=== PATIENT | male | born 1935 | race Caucasian/White ===

== ENCOUNTER 2018-08-10 12:50 | Day surgery (SDC) | payer MEDICARE, OTHER ==
[~2018-08-10] VITALS: Ht 167.6 cm; Wt 101.8 kg
[2018-08-10] MEDS ORDERED: SODIUM CHLORIDE 0.9% 1,000 ML IV ONE (12:58)
[2018-08-10 13:34] LABS: GLUCOMETER DEV NAME(LOC) SDS.; GLUCOSE,POINT OF CARE 85 MG/DL (70-110)
[2018-08-10] MEDS: SODIUM CHLORIDE 0.9% 1,000 ML IV ONE (13:35)
[2018-08-10] MEDS ORDERED: FentaNYL CITRATE-PF 100 MCG/2 ML VIAL ONE (13:52)
[2018-08-10] MEDS ORDERED: MIDAZOLAM HCL 5 MG/ML VIAL ONE (13:53)
== END 2018-08-10 18:15 | disposition home or self-care (01) ==
LOC: SURGERY 12:50
PROVIDERS: ATTEND Internal Medicine Gastroenterology
DX: K62.1 Rectal polyp (principal); K57.30 Diverticulosis of large intestine without perforation or abscess without bleeding; K64.0 First degree hemorrhoids; J44.9 Chronic obstructive pulmonary disease, unspecified; I10 Essential (primary) hypertension; E78.00 Pure hypercholesterolemia, unspecified; M19.90 Unspecified osteoarthritis, unspecified site; E03.9 Hypothyroidism, unspecified; E11.9 Type 2 diabetes mellitus without complications; Z98.890 Other specified postprocedural states; Z79.899 Other long term (current) drug therapy; Z86.79 Personal history of other diseases of the circulatory system
CPT/HCPCS: 88305; 93005; 99152; J2250; J3010; J7030

== ENCOUNTER 2021-03-12 09:18 | Inpatient (IN) | payer MEDICARE, OTHER ==
[~2021-03-12] VITALS: Ht 165.1 cm; Wt 64.4 kg
[2021-03-12] MEDS ORDERED: VANCOMYCIN HCL 1 GM/D5% WATER 200 ML IV ONE (09:30)
[2021-03-12] MEDS ORDERED: IPRATROPIUM BROMIDE 0.5 MG/2.5 ML NEB SOLUTION NEB ONE (09:30)
[2021-03-12] MEDS ORDERED: SODIUM CHLORIDE 0.9% 1,000 ML IV ONE (09:30)
[2021-03-12] MEDS ORDERED: AZITHROMYCIN 500 MG/NS 250 ML IV ONE (09:30)
[2021-03-12] MEDS ORDERED: PIPERACILLIN/TAZO 3.375 GM/D5W 50 ML IV ONE (09:30)
[2021-03-12] MEDS ORDERED: ACETAMINOPHEN 1000 MG/ISO-OSM 100 ML IV ONE (09:30)
[2021-03-12] MEDS ORDERED: ALBUTEROL SULFATE 5 MG/ML 20 ML NEB SOLN [BULK] NEB ONE (09:30)
[2021-03-12] MEDS ORDERED: DEXAMETHASONE SOD PHOS 4 MG/ML VIAL IVP ONE (09:30)
[2021-03-12 09:39] LABS: COVID AG,FIA SOURCE NASOPHARYNGEAL
[2021-03-12 09:48] LABS: BASOPHILS % (AUTO) 0.2 % (0.0-2.0); EOSINOPHILS % (AUTO) 0.2 % (1.0-6.0); HEMATOCRIT 40.7 % (41-53); HEMOGLOBIN 13.1 g/dL (13.5-17.5); LYMPHOCYTES # (AUTO) 1.3 K/uL (1.0-4.8); LYMPHOCYTES % (AUTO) 13.2 % (22.0-44.0); MEAN CORPUSCULAR HEMOGLOBIN 28.3 pg (26.0-34.0); MEAN CORPUSCULAR HGB CONC 32.2 G/dL (31.0-37.0); MEAN CORPUSCULAR VOLUME 88 fL (80-100); MONOCYTES # (AUTO) 0.6 K/uL (0.1-1.0); MONOCYTES % (AUTO) 6.3 % (2.0-9.0); NEUTROPHILS # (AUTO) 7.6 K/uL (1.8-7.7); NEUTROPHILS % (AUTO) 80.1 % (40.0-70.0); PLATELET COUNT (AUTO) 139 K/uL (150-450); RED BLOOD CELL COUNT(AUTO) 4.63 MIL/uL (4.50-5.90); RED CELL DISTRIBUTION WIDTH 18.7 % (11.5-14.5)
[2021-03-12 09:52] LABS: CREATININE 1.7 mg/dL (0.60-1.30); POTASSIUM 4.1 mmol/L (3.5-5.1)
[2021-03-12 09:57] LABS: INR 1.2 (0.9-1.1); PROTHROMBIN TIME 12.6 SEC (9.4-11.6)
[2021-03-12 10:25] LABS: ALBUMIN 2.9 g/dL (3.4-5.0); BILIRUBIN,TOTAL 1.5 mg/dL (0.1-1.0); C-REACTIVE PROTEIN QUANT 19.79 mg/dL (0.00-0.30); MAGNESIUM 2.1 mg/dL (1.80-2.40); PHOSPHORUS 3.7 mg/dL (2.5-4.9); TOTAL PROTEIN, SERUM 6.8 g/dL (6.4-8.2)
[2021-03-12 10:27] LABS: BILIRUBIN,URINE NEGATIVE (NEGATIVE); GLUCOSE, URINE (UA) NEGATIVE (NEGATIVE); KETONES,URINE NEGATIVE (NEGATIVE); LEUKOCYTE ESTERASE ,URINE NEGATIVE (NEGATIVE); NITRATE,URINE NEGATIVE (NEGATIVE); OCCULT BLOOD,URINE NEGATIVE (NEGATIVE); PROTEIN,URINE SEE CONFIRM (NEGATIVE)
[2021-03-12 10:29] LABS: APPEARANCE,URINE HAZY (CLEAR)
[2021-03-12 10:39] LABS: SULFOSALICYLIC ACID,URINE 1+ (Negative)
[2021-03-12 10:40] LABS: BACTERIA,URINE None Seen /HPF (None Seen); FINE GRANULAR CASTS,URINE 0-2 /LPF (None Seen); RBC,URINE None Seen /HPF (0-2); WBC,URINE None Seen /HPF (0-5)
[2021-03-12 11:08] LABS: INFLUENZA TYPE A NEGATIVE FOR TYPE A (NEGATIVE); INFLUENZA TYPE B NEGATIVE FOR TYPE B (NEGATIVE)
[2021-03-12] MEDS ORDERED: ATOR40TA28 PO (11:19)
[2021-03-12] MEDS ORDERED: LEVO88TA4 PO (11:19)
[2021-03-12] MEDS ORDERED: MONT-35 PO (11:19)
[2021-03-12] MEDS ORDERED: ALLO100T2 PO (11:19)
[2021-03-12] MEDS ORDERED: CHOL-35 PO (11:19)
[2021-03-12] MEDS ORDERED: CALC0.2521 PO (11:19)
[2021-03-12] MEDS ORDERED: GABA-1216 PO (11:19)
[2021-03-12] MEDS ORDERED: FURO40 PO (11:19)
[2021-03-12] MEDS ORDERED: LOSA-370 PO (11:19)
[2021-03-12] MEDS ORDERED: METO25XL PO (11:19)
[2021-03-12] MEDS ORDERED: SPIR-37 PO (11:19)
[2021-03-12] MEDS ORDERED: APIX2.5T PO (11:19)
[2021-03-12] MEDS ORDERED: FOLI-130 PO (11:19)
[2021-03-12] MEDS ORDERED: BUDE10.26 IH (11:19)
[2021-03-12] MEDS ORDERED: TIOT185 IH (11:19)
[2021-03-12] MEDS ORDERED: IPRA4AER IH (11:19)
[2021-03-12] MEDS ORDERED: ONDANSETRON HCL 4 MG/2 ML VIAL IVP PRN (11:30)
[2021-03-12] MEDS ORDERED: ACETAMINOPHEN 325 MG TABLET PO PRN (11:30)
[2021-03-12] MEDS ORDERED: 0.9% SODIUM CHLORIDE 10 ML SYRINGE IVP PRN (11:30)
[2021-03-12] MEDS ORDERED: GABA-1181 PO (11:41)
[2021-03-12] MEDS ORDERED: IPRA3AMP24 NEB (11:41)
[2021-03-12] MEDS ORDERED: LEVO175T9 PO (11:41)
[2021-03-12] MEDS ORDERED: METO25 PO (11:41)
[2021-03-12] MEDS ORDERED: TIOT4MIS2 IH (11:41)
[2021-03-12] MEDS ORDERED: ALBU8HFA IH (11:41)
[2021-03-12] MEDS ORDERED: BUDE10.2 IH (11:41)
[2021-03-12 21:11] VITALS: BP 119/66
[2021-03-12] MEDS: ALBUTEROL SULFATE HFA 90 MCG/PUFF 8 GM INHALER IH SCH (21:45)
[2021-03-12] MEDS ORDERED: FUROSEMIDE 40 MG TABLET PO SCH (21:45)
[2021-03-12] MEDS ORDERED: METOPROLOL TARTRATE 25 MG TABLET PO SCH (21:45)
[2021-03-12] MEDS ORDERED: GABAPENTIN 300 MG CAPSULE PO SCH (21:45)
[2021-03-12] MEDS ORDERED: APIXABAN 2.5 MG TABLET PO SCH (21:45)
[2021-03-12 23:38] VITALS: BP 111/61
[2021-03-13] MEDS ORDERED: DEXAMETHASONE SOD PHOS 4 MG/ML VIAL IVP ONE (00:15)
[2021-03-13] MEDS ORDERED: ACETAMINOPHEN 325 MG TABLET PO PRN (00:30)
[2021-03-13] MEDS ORDERED: ZOLPIDEM TARTRATE 5 MG TABLET PO PRN (00:30)
[2021-03-13] MEDS ORDERED: BISACODYL 10 MG RECTAL RECTAL SUPPOSITORY PR PRN (00:30)
[2021-03-13] MEDS ORDERED: ONDANSETRON HCL 4 MG/2 ML VIAL IVP PRN (00:30)
[2021-03-13] MEDS ORDERED: MAGNESIUM HYDROXIDE SUSPENSION 30 ML UDCUP PO PRN (00:30)
[2021-03-13] MEDS: CefTRIAXone 1 GM/DEXTROSE 50 ML IV SCH ×2 (00:54→23:39)
[2021-03-13] MEDS: AZITHROMYCIN 500 MG/NS 250 ML IV SCH (00:55)
[2021-03-13] MEDS: ALBUTEROL SULFATE HFA 90 MCG/PUFF 8 GM INHALER IH SCH ×4 (00:56→23:36)
[2021-03-13] MEDS ORDERED: SODIUM CHLORIDE 0.9% 250 ML IV ONE (01:01)
[2021-03-13 03:33] VITALS: BP 109/62
[2021-03-13] MEDS ORDERED: MISC MED-CONVERTED FROM AMBULATORY (Levothyroxine Sodium 175 MCG) PO SCH (06:30)
[2021-03-13] MEDS: LEVOTHYROXINE SODIUM 50 MCG TABLET PO SCH ×2 (06:42→06:47)
[2021-03-13 07:45] VITALS: BP 135/73
[2021-03-13 08:13] LABS: EOSINOPHILS % (AUTO) 0 % (1.0-6.0); HEMATOCRIT 40.4 % (41-53); HEMOGLOBIN 13.2 g/dL (13.5-17.5); LYMPHOCYTES # (AUTO) 0.2 K/uL (1.0-4.8); LYMPHOCYTES % (AUTO) 2.3 % (22.0-44.0); MEAN CORPUSCULAR HEMOGLOBIN 28.6 pg (26.0-34.0); MEAN CORPUSCULAR HGB CONC 32.6 G/dL (31.0-37.0); MEAN CORPUSCULAR VOLUME 88 fL (80-100); MONOCYTES # (AUTO) 0.3 K/uL (0.1-1.0); NEUTROPHILS # (AUTO) 9.5 K/uL (1.8-7.7); PLATELET COUNT (AUTO) 161 K/uL (150-450); RED CELL DISTRIBUTION WIDTH 18.3 % (11.5-14.5)
[2021-03-13 08:19] LABS: ALBUMIN 2.8 g/dL (3.4-5.0); BILIRUBIN,TOTAL 0.8 mg/dL (0.1-1.0); CALCIUM, TOTAL 9.2 mg/dL (8.8-10.5); CREATININE 1.81 mg/dL (0.60-1.30); POTASSIUM 5.1 mmol/L (3.5-5.1); TOTAL PROTEIN, SERUM 6.9 g/dL (6.4-8.2)
[2021-03-13 08:21] LABS: NEUTROPHILS % (AUTO) 94.7 % (40.0-70.0)
[2021-03-13] MEDS ORDERED: [UNRECOGNIZED DRUG - OTHER] IH SCH (09:00)
[2021-03-13] MEDS: FOLIC ACID 1 MG TABLET PO SCH (09:00)
[2021-03-13] MEDS ORDERED: FUROSEMIDE 40 MG TABLET PO SCH (09:00)
[2021-03-13] MEDS ORDERED: SPIRONOLACTONE 25 MG TABLET PO SCH (09:00)
[2021-03-13 11:49] VITALS: BP 137/78
[2021-03-13] MEDS: DEXAMETHASONE SOD PHOS 4 MG/ML VIAL IVP SCH (12:01)
[2021-03-13] MEDS: ALLOPURINOL 100 MG TABLET PO SCH (12:02)
[2021-03-13] MEDS: CHOLECALCIFEROL (VIT D3) 1,000 UNITS [25 MCG] TABLET PO SCH (12:02)
[2021-03-13] MEDS: GABAPENTIN 300 MG CAPSULE PO SCH ×3 (12:02→21:07)
[2021-03-13] MEDS: APIXABAN 2.5 MG TABLET PO SCH ×2 (12:03→21:07)
[2021-03-13] MEDS: DOCUSATE SODIUM 100 MG CAPSULE PO SCH ×2 (12:03→21:07)
[2021-03-13] MEDS: METOPROLOL TARTRATE 25 MG TABLET PO SCH (12:03)
[2021-03-13] MEDS: PANTOPRAZOLE SODIUM 40 MG/VIAL IVP SCH (12:05)
[2021-03-13] MEDS ORDERED: REMDESIVIR 200 MG in SODIUM CHLORIDE 0.9% 250 ML IV ONE (12:15)
[2021-03-13 15:49] VITALS: BP 142/81
[2021-03-13 20:13] VITALS: BP 131/81
[2021-03-13] MEDS: ATORVASTATIN CALCIUM 40 MG TABLET PO SCH (21:07)
[2021-03-13] MEDS: LOSARTAN POTASSIUM 25 MG TABLET PO SCH (21:07)
[2021-03-13] MEDS: MONTELUKAST SODIUM 10 MG TABLET PO SCH (21:07)
[2021-03-13 23:31] VITALS: BP 137/83
[2021-03-14] MEDS: AZITHROMYCIN 500 MG/NS 250 ML IV SCH (00:16)
[2021-03-14 04:10] VITALS: BP 124/76
[2021-03-14] MEDS: LEVOTHYROXINE SODIUM 50 MCG TABLET PO SCH (07:24)
[2021-03-14] MEDS: ALBUTEROL SULFATE HFA 90 MCG/PUFF 8 GM INHALER IH SCH ×3 (07:25→20:31)
[2021-03-14 08:41] VITALS: BP 126/86
[2021-03-14] MEDS: CALCITRIOL 0.25 MCG CAPSULE PO SCH (08:56)
[2021-03-14] MEDS: APIXABAN 2.5 MG TABLET PO SCH ×2 (08:56→20:30)
[2021-03-14] MEDS: METOPROLOL TARTRATE 25 MG TABLET PO SCH (08:56)
[2021-03-14] MEDS: DOCUSATE SODIUM 100 MG CAPSULE PO SCH ×2 (08:57→20:30)
[2021-03-14] MEDS: CHOLECALCIFEROL (VIT D3) 1,000 UNITS [25 MCG] TABLET PO SCH (08:57)
[2021-03-14] MEDS: DEXAMETHASONE SOD PHOS 4 MG/ML VIAL IVP SCH (08:58)
[2021-03-14] MEDS: PANTOPRAZOLE SODIUM 40 MG/VIAL IVP SCH (08:59)
[2021-03-14] MEDS: GABAPENTIN 300 MG CAPSULE PO SCH ×3 (08:59→20:30)
[2021-03-14] MEDS: FOLIC ACID 1 MG TABLET PO SCH (09:13)
[2021-03-14] MEDS ORDERED: FUROSEMIDE 40 MG/4 ML VIAL IVP ONE (10:00)
[2021-03-14 10:08] LABS: CALCIUM, TOTAL 9.3 mg/dL (8.8-10.5); CREATININE 1.78 mg/dL (0.60-1.30)
[2021-03-14 10:16] LABS: POTASSIUM 5.2 mmol/L (3.5-5.1)
[2021-03-14 12:00] VITALS: BP 125/83
[2021-03-14] MEDS ORDERED: LEVO50 PO (13:28)
[2021-03-14] MEDS: ALLOPURINOL 100 MG TABLET PO SCH (14:49)
[2021-03-14 16:16] VITALS: BP 131/73
[2021-03-14 18:12] LABS: EOSINOPHILS % (AUTO) 0 % (1.0-6.0); HEMATOCRIT 40.9 % (41-53); HEMOGLOBIN 12.8 g/dL (13.5-17.5); LYMPHOCYTES # (AUTO) 0.2 K/uL (1.0-4.8); LYMPHOCYTES % (AUTO) 1.3 % (22.0-44.0); MEAN CORPUSCULAR HEMOGLOBIN 27.8 pg (26.0-34.0); MEAN CORPUSCULAR HGB CONC 31.3 G/dL (31.0-37.0); MEAN CORPUSCULAR VOLUME 89 fL (80-100); MONOCYTES # (AUTO) 0.9 K/uL (0.1-1.0); MONOCYTES % (AUTO) 6.3 % (2.0-9.0); NEUTROPHILS # (AUTO) 13.3 K/uL (1.8-7.7); PLATELET COUNT (AUTO) 192 K/uL (150-450); RED BLOOD CELL COUNT(AUTO) 4.62 MIL/uL (4.50-5.90); RED CELL DISTRIBUTION WIDTH 18.4 % (11.5-14.5)
[2021-03-14 18:31] LABS: NEUTROPHILS % (AUTO) 92.4 % (40.0-70.0)
[2021-03-14 18:34] LABS: ALBUMIN 2.9 g/dL (3.4-5.0); BILIRUBIN,TOTAL 0.5 mg/dL (0.1-1.0); C-REACTIVE PROTEIN QUANT 13.5 mg/dL (0.00-0.30); CALCIUM, TOTAL 9.2 mg/dL (8.8-10.5); CREATININE 1.78 mg/dL (0.60-1.30); POTASSIUM 5.4 mmol/L (3.5-5.1); TOTAL PROTEIN, SERUM 6.9 g/dL (6.4-8.2)
[2021-03-14 19:36] VITALS: BP 144/71
[2021-03-14] MEDS: LOSARTAN POTASSIUM 25 MG TABLET PO SCH (20:30)
[2021-03-14] MEDS: ATORVASTATIN CALCIUM 40 MG TABLET PO SCH (20:30)
[2021-03-14] MEDS: MONTELUKAST SODIUM 10 MG TABLET PO SCH (20:30)
[2021-03-14] MEDS: REMDESIVIR 100 MG in SODIUM CHLORIDE 0.9% 250 ML IV SCH (20:31)
[2021-03-14 23:38] VITALS: BP 126/70
[2021-03-15] MEDS: CefTRIAXone 1 GM/DEXTROSE 50 ML IV SCH (00:29)
[2021-03-15] MEDS: ALBUTEROL SULFATE HFA 90 MCG/PUFF 8 GM INHALER IH SCH ×4 (00:30→19:30)
[2021-03-15] MEDS: AZITHROMYCIN 500 MG/NS 250 ML IV SCH (01:28)
[2021-03-15 03:49] VITALS: BP 122/73
[2021-03-15] MEDS: LEVOTHYROXINE SODIUM 50 MCG TABLET PO SCH (06:07)
[2021-03-15 06:08] LABS: EOSINOPHILS % (AUTO) 0 % (1.0-6.0); HEMATOCRIT 40.3 % (41-53); HEMOGLOBIN 12.9 g/dL (13.5-17.5); LYMPHOCYTES # (AUTO) 0.2 K/uL (1.0-4.8); LYMPHOCYTES % (AUTO) 1.8 % (22.0-44.0); MEAN CORPUSCULAR HEMOGLOBIN 28.4 pg (26.0-34.0); MEAN CORPUSCULAR VOLUME 89 fL (80-100); MONOCYTES # (AUTO) 0.9 K/uL (0.1-1.0); MONOCYTES % (AUTO) 6.5 % (2.0-9.0); NEUTROPHILS # (AUTO) 12.2 K/uL (1.8-7.7); PLATELET COUNT (AUTO) 180 K/uL (150-450); RED BLOOD CELL COUNT(AUTO) 4.53 MIL/uL (4.50-5.90); RED CELL DISTRIBUTION WIDTH 18.3 % (11.5-14.5)
[2021-03-15 06:25] LABS: NEUTROPHILS % (AUTO) 91.7 % (40.0-70.0)
[2021-03-15 06:42] LABS: ALBUMIN 2.8 g/dL (3.4-5.0); BILIRUBIN,TOTAL 0.5 mg/dL (0.1-1.0); C-REACTIVE PROTEIN QUANT 14.12 mg/dL (0.00-0.30); CALCIUM, TOTAL 9.2 mg/dL (8.8-10.5); CREATININE 1.87 mg/dL (0.60-1.30); POTASSIUM 5.5 mmol/L (3.5-5.1); TOTAL PROTEIN, SERUM 6.8 g/dL (6.4-8.2)
[2021-03-15 07:54] VITALS: BP 142/67
[2021-03-15] MEDS: DEXAMETHASONE SOD PHOS 4 MG/ML VIAL IVP SCH (08:49)
[2021-03-15] MEDS: METOPROLOL TARTRATE 25 MG TABLET PO SCH (08:50)
[2021-03-15] MEDS: CHOLECALCIFEROL (VIT D3) 1,000 UNITS [25 MCG] TABLET PO SCH (08:50)
[2021-03-15] MEDS: GABAPENTIN 300 MG CAPSULE PO SCH ×4 (08:50→21:52)
[2021-03-15] MEDS: FOLIC ACID 1 MG TABLET PO SCH (08:51)
[2021-03-15] MEDS: DOCUSATE SODIUM 100 MG CAPSULE PO SCH ×3 (08:51→21:51)
[2021-03-15] MEDS: PANTOPRAZOLE SODIUM 40 MG/VIAL IVP SCH (08:55)
[2021-03-15] MEDS: APIXABAN 2.5 MG TABLET PO SCH ×2 (08:57→21:00)
[2021-03-15] MEDS: ALLOPURINOL 100 MG TABLET PO SCH (09:00)
[2021-03-15] MEDS ORDERED: TOCILIZUMAB 800 MG in SODIUM CHLORIDE 0.9% 60 ML IV ONE (11:30)
[2021-03-15 11:41] VITALS: BP 115/43
[2021-03-15 15:18] LABS: ABG BASE EXCESS -4.7 mmol/L (-2.0-3.0); ABG CARBOXYHEMOGLOBIN 0.5 % (0.0-1.5); ABG HCO3 19.4 mmol/L (22.0-26.0); ABG METHEMOGLOBIN 0.3 % (0.0-1.5); ABG OXYGEN CONTENT 15.8 mL/dL (15.0-23.0); ABG OXYHEMOGLOBIN 79.2 % (94.0-100.0); ABG PCO2 63 mmHg (35-45); ABG PH 7.189 (7.35-7.450); ABG TOTAL HEMOGLOBIN 14.2 G/dL (12.0-18.0); PO2, ARTERIAL BG 47.2 mmHg (71.0-79.0); SOURCE, BLOOD GAS ARTERIAL
[2021-03-15 15:19] LABS: ABG OXYGEN SATURATION 79.8 % (95.0-98.0); O2 DEVICE,BLOOD GAS HI FL CANNULA (ROOM AIR); SITE, BLOOD GAS LFT RADIAL
[2021-03-15 15:29] VITALS: BP 125/43
[2021-03-15] MEDS: IPRATROPIUM BROMIDE 0.5 MG/2.5 ML NEB SOLUTION NEB SCH ×3 (16:01→22:39)
[2021-03-15] MEDS: ALBUTEROL SULFATE 2.5 MG/0.5 ML NEB SOLUTION NEB SCH ×3 (16:02→22:38)
[2021-03-15 17:44] LABS: ABG METHEMOGLOBIN 0.3 % (0.0-1.5); ABG TOTAL HEMOGLOBIN 13.5 G/dL (12.0-18.0); SOURCE, BLOOD GAS ARTERIAL
[2021-03-15 17:47] LABS: ABG BASE EXCESS -4.4 mmol/L (-2.0-3.0); ABG CARBOXYHEMOGLOBIN 0.8 % (0.0-1.5); ABG HCO3 20.3 mmol/L (22.0-26.0); ABG OXYGEN CONTENT 17.9 mL/dL (15.0-23.0); ABG OXYGEN SATURATION 95.3 % (95.0-98.0); ABG OXYHEMOGLOBIN 94.3 % (94.0-100.0); ABG PCO2 55 mmHg (35-45); ABG PH 7.239 (7.35-7.450); SITE, BLOOD GAS LFT BRACHIAL
[2021-03-15 17:48] LABS: INSPIRATORY TIME, BG 1 SEC; O2 DEVICE,BLOOD GAS BIPAP (ROOM AIR); SPONTANEOUS VT, BG 605 ml
[2021-03-15 20:00] VITALS: BP 115/62
[2021-03-15] MEDS: LOSARTAN POTASSIUM 25 MG TABLET PO SCH (21:00)
[2021-03-15] MEDS: ATORVASTATIN CALCIUM 40 MG TABLET PO SCH ×2 (21:00→21:52)
[2021-03-15] MEDS: MONTELUKAST SODIUM 10 MG TABLET PO SCH ×2 (21:00→21:51)
[2021-03-15] MEDS: REMDESIVIR 100 MG in SODIUM CHLORIDE 0.9% 250 ML IV SCH (21:51)
[2021-03-15] MEDS ORDERED: SODIUM CHLORIDE 0.9% 250 ML IV ONE (22:27)
[2021-03-16] VITALS: BP 115/71
[2021-03-16] MEDS: CefTRIAXone 1 GM/DEXTROSE 50 ML IV SCH ×2 (00:21→23:23)
[2021-03-16] MEDS: AZITHROMYCIN 500 MG/NS 250 ML IV SCH (01:22)
[2021-03-16] MEDS: IPRATROPIUM BROMIDE 0.5 MG/2.5 ML NEB SOLUTION NEB SCH ×6 (03:29→23:21)
[2021-03-16] MEDS: ALBUTEROL SULFATE 2.5 MG/0.5 ML NEB SOLUTION NEB SCH ×6 (03:29→23:21)
[2021-03-16 04:00] VITALS: BP 113/69
[2021-03-16 06:29] LABS: BASOPHILS % (AUTO) 0.1 % (0.0-2.0); EOSINOPHILS % (AUTO) 0 % (1.0-6.0); HEMATOCRIT 42.1 % (41-53); HEMOGLOBIN 13.4 g/dL (13.5-17.5); LYMPHOCYTES # (AUTO) 0.2 K/uL (1.0-4.8); LYMPHOCYTES % (AUTO) 1.8 % (22.0-44.0); MEAN CORPUSCULAR HEMOGLOBIN 28.3 pg (26.0-34.0); MEAN CORPUSCULAR HGB CONC 31.8 G/dL (31.0-37.0); MEAN CORPUSCULAR VOLUME 89 fL (80-100); MONOCYTES # (AUTO) 0.6 K/uL (0.1-1.0); MONOCYTES % (AUTO) 5.7 % (2.0-9.0); NEUTROPHILS # (AUTO) 9.1 K/uL (1.8-7.7); PLATELET COUNT (AUTO) 189 K/uL (150-450); RED BLOOD CELL COUNT(AUTO) 4.72 MIL/uL (4.50-5.90); RED CELL DISTRIBUTION WIDTH 18.1 % (11.5-14.5)
[2021-03-16] MEDS: LEVOTHYROXINE SODIUM 125 MCG TABLET PO SCH (06:31)
[2021-03-16] MEDS: LEVOTHYROXINE SODIUM 50 MCG TABLET PO SCH (06:31)
[2021-03-16 06:44] LABS: NEUTROPHILS % (AUTO) 92.4 % (40.0-70.0)
[2021-03-16 08:00] VITALS: BP 130/60
[2021-03-16] MEDS: FOLIC ACID 1 MG TABLET PO SCH (09:00)
[2021-03-16] MEDS: ALLOPURINOL 100 MG TABLET PO SCH (09:00)
[2021-03-16] MEDS: APIXABAN 2.5 MG TABLET PO SCH ×2 (09:00→20:31)
[2021-03-16] MEDS: CALCITRIOL 0.25 MCG CAPSULE PO SCH (09:00)
[2021-03-16] MEDS: FUROSEMIDE 40 MG/4 ML VIAL IVP SCH (09:00)
[2021-03-16] MEDS: METOPROLOL TARTRATE 25 MG TABLET PO SCH (09:00)
[2021-03-16] MEDS: GABAPENTIN 300 MG CAPSULE PO SCH ×3 (09:00→20:31)
[2021-03-16] MEDS: CHOLECALCIFEROL (VIT D3) 1,000 UNITS [25 MCG] TABLET PO SCH (09:00)
[2021-03-16] MEDS: DOCUSATE SODIUM 100 MG CAPSULE PO SCH ×2 (09:00→20:30)
[2021-03-16] MEDS: PANTOPRAZOLE SODIUM 40 MG/VIAL IVP SCH (09:00)
[2021-03-16] MEDS: DEXAMETHASONE SOD PHOS 4 MG/ML VIAL IVP SCH (09:00)
[2021-03-16 10:41] LABS: ALBUMIN 2.8 g/dL (3.4-5.0); BILIRUBIN,TOTAL 0.4 mg/dL (0.1-1.0); C-REACTIVE PROTEIN QUANT 12.49 mg/dL (0.00-0.30); CALCIUM, TOTAL 9.1 mg/dL (8.8-10.5); CREATININE 2.18 mg/dL (0.60-1.30); POTASSIUM 5.4 mmol/L (3.5-5.1)
[2021-03-16] MEDS: GuaiFENesin/D-METHORPHAN/PHENYLEPH 5 ML LIQUID ORAL.SYG PO PRN ×2 (11:16→17:46)
[2021-03-16] MEDS: HYDROCODONE/ACETAMINOPHEN 5-325 MG TABLET PO PRN (11:16)
[2021-03-16 12:00] VITALS: BP 114/74
[2021-03-16] MEDS: ALBUTEROL SULFATE HFA 90 MCG/PUFF 8 GM INHALER IH SCH ×3 (12:00→18:00)
[2021-03-16 16:00] VITALS: BP 120/71
[2021-03-16 20:00] VITALS: BP 118/30
[2021-03-16] MEDS: MONTELUKAST SODIUM 10 MG TABLET PO SCH (20:30)
[2021-03-16] MEDS: ATORVASTATIN CALCIUM 40 MG TABLET PO SCH (20:31)
[2021-03-16] MEDS: LOSARTAN POTASSIUM 25 MG TABLET PO SCH (20:31)
[2021-03-16] MEDS: REMDESIVIR 100 MG in SODIUM CHLORIDE 0.9% 250 ML IV SCH (20:32)
[2021-03-17] VITALS: BP 95/46
[2021-03-17] MEDS: AZITHROMYCIN 500 MG/NS 250 ML IV SCH (01:23)
[2021-03-17] MEDS: ALBUTEROL SULFATE 2.5 MG/0.5 ML NEB SOLUTION NEB SCH ×6 (03:33→22:51)
[2021-03-17] MEDS: IPRATROPIUM BROMIDE 0.5 MG/2.5 ML NEB SOLUTION NEB SCH ×6 (03:33→22:51)
[2021-03-17 04:00] VITALS: BP 116/49
[2021-03-17 05:44] LABS: BASOPHILS % (AUTO) 0.1 % (0.0-2.0); EOSINOPHILS % (AUTO) 0 % (1.0-6.0); HEMATOCRIT 40.7 % (41-53); HEMOGLOBIN 12.8 g/dL (13.5-17.5); LYMPHOCYTES # (AUTO) 0.2 K/uL (1.0-4.8); LYMPHOCYTES % (AUTO) 1.6 % (22.0-44.0); MEAN CORPUSCULAR HEMOGLOBIN 28.1 pg (26.0-34.0); MEAN CORPUSCULAR HGB CONC 31.5 G/dL (31.0-37.0); MEAN CORPUSCULAR VOLUME 89 fL (80-100); MONOCYTES # (AUTO) 0.5 K/uL (0.1-1.0); MONOCYTES % (AUTO) 4.8 % (2.0-9.0); NEUTROPHILS # (AUTO) 9.5 K/uL (1.8-7.7); PLATELET COUNT (AUTO) 195 K/uL (150-450); RED BLOOD CELL COUNT(AUTO) 4.56 MIL/uL (4.50-5.90); RED CELL DISTRIBUTION WIDTH 18.6 % (11.5-14.5)
[2021-03-17] MEDS: LEVOTHYROXINE SODIUM 50 MCG TABLET PO SCH (05:58)
[2021-03-17] MEDS: LEVOTHYROXINE SODIUM 125 MCG TABLET PO SCH (05:58)
[2021-03-17 06:21] LABS: ALBUMIN 2.6 g/dL (3.4-5.0); BILIRUBIN,TOTAL 0.3 mg/dL (0.1-1.0); C-REACTIVE PROTEIN QUANT 8.77 mg/dL (0.00-0.30); CALCIUM, TOTAL 9.2 mg/dL (8.8-10.5); CREATININE 2.43 mg/dL (0.60-1.30); POTASSIUM 5.7 mmol/L (3.5-5.1); TOTAL PROTEIN, SERUM 6.6 g/dL (6.4-8.2)
[2021-03-17 07:24] LABS: NEUTROPHILS % (AUTO) 93.5 % (40.0-70.0)
[2021-03-17 08:00] VITALS: BP 152/62
[2021-03-17] MEDS: DOCUSATE SODIUM 100 MG CAPSULE PO SCH ×2 (08:25→21:00)
[2021-03-17] MEDS: GABAPENTIN 300 MG CAPSULE PO SCH ×3 (08:25→21:00)
[2021-03-17] MEDS: APIXABAN 2.5 MG TABLET PO SCH ×2 (08:26→21:00)
[2021-03-17] MEDS: FUROSEMIDE 40 MG/4 ML VIAL IVP SCH (08:26)
[2021-03-17] MEDS: FOLIC ACID 1 MG TABLET PO SCH (08:26)
[2021-03-17] MEDS: PANTOPRAZOLE SODIUM 40 MG/VIAL IVP SCH (08:26)
[2021-03-17] MEDS: ALLOPURINOL 100 MG TABLET PO SCH (08:26)
[2021-03-17] MEDS: DEXAMETHASONE SOD PHOS 4 MG/ML VIAL IVP SCH (08:26)
[2021-03-17] MEDS: GuaiFENesin/D-METHORPHAN/PHENYLEPH 5 ML LIQUID ORAL.SYG PO PRN (08:27)
[2021-03-17] MEDS: METOPROLOL TARTRATE 25 MG TABLET PO SCH (08:27)
[2021-03-17] MEDS: CHOLECALCIFEROL (VIT D3) 1,000 UNITS [25 MCG] TABLET PO SCH (08:27)
[2021-03-17 12:00] VITALS: BP 157/69
[2021-03-17] MEDS ORDERED: INSULIN LISPRO 100 UNITS/ML SQ PRN (12:00)
[2021-03-17] MEDS: ALBUTEROL SULFATE HFA 90 MCG/PUFF 8 GM INHALER IH SCH ×3 (12:00→23:27)
[2021-03-17] MEDS ORDERED: DEXTROSE 50%-WATER 25 GM/50 ML SYRINGE IVP PRN (12:00)
[2021-03-17] MEDS: HYDROCODONE/ACETAMINOPHEN 5-325 MG TABLET PO PRN (14:40)
[2021-03-17 16:00] VITALS: BP 110/60
[2021-03-17] MEDS ORDERED: SODIUM ZIRCONIUM CYCLOSILICATE 5 GM POWDER PACKET PO ONE (16:30)
[2021-03-17 17:52] LABS: GLUCOSE,POINT OF CARE 156 MG/DL (70-110)
[2021-03-17 18:29] LABS: APPEARANCE,URINE SL CLOUDY (CLEAR); BILIRUBIN,URINE NEGATIVE (NEGATIVE); CREATININE,URINE RANDOM 58.7 mg/dL (30.0-125.0); GLUCOSE, URINE (UA) NEGATIVE (NEGATIVE); KETONES,URINE NEGATIVE (NEGATIVE); LEUKOCYTE ESTERASE ,URINE SMALL (NEGATIVE); NITRATE,URINE NEGATIVE (NEGATIVE); OCCULT BLOOD,URINE LARGE (NEGATIVE); PROTEIN,URINE TRACE (NEGATIVE); UROBILINOGEN,URINE 0.2 mg/dL (<=1.0)
[2021-03-17 18:45] LABS: BACTERIA,URINE None Seen /HPF (None Seen); RBC,URINE >100 /HPF (0-2)
[2021-03-17 20:00] VITALS: BP 135/84
[2021-03-17] MEDS: ATORVASTATIN CALCIUM 40 MG TABLET PO SCH (21:00)
[2021-03-17] MEDS: MONTELUKAST SODIUM 10 MG TABLET PO SCH (21:00)
[2021-03-17] MEDS: REMDESIVIR 100 MG in SODIUM CHLORIDE 0.9% 250 ML IV SCH (21:54)
[2021-03-17] MEDS: CefTRIAXone 1 GM/DEXTROSE 50 ML IV SCH (23:42)
[2021-03-18] VITALS: BP 119/67
[2021-03-18] MEDS: AZITHROMYCIN 500 MG/NS 250 ML IV SCH (01:52)
[2021-03-18] MEDS: ALBUTEROL SULFATE 2.5 MG/0.5 ML NEB SOLUTION NEB SCH ×6 (02:51→22:48)
[2021-03-18] MEDS: IPRATROPIUM BROMIDE 0.5 MG/2.5 ML NEB SOLUTION NEB SCH ×6 (02:51→22:48)
[2021-03-18 04:00] VITALS: BP 140/85
[2021-03-18] MEDS: LEVOTHYROXINE SODIUM 50 MCG TABLET PO SCH (06:16)
[2021-03-18] MEDS: LEVOTHYROXINE SODIUM 125 MCG TABLET PO SCH (06:16)
[2021-03-18] MEDS: MORPHINE SULFATE 2 MG/ML SYRINGE IVP PRN (07:19)
[2021-03-18 08:00] VITALS: BP 200/102
[2021-03-18] MEDS ORDERED: HEPARIN SODIUM,PORCINE 5,000 UNITS/ML VIAL IVP PRN ×2 (08:15)
[2021-03-18 08:59] LABS: BASOPHILS % (AUTO) 0.1 % (0.0-2.0); EOSINOPHILS % (AUTO) 0 % (1.0-6.0); HEMATOCRIT 42.8 % (41-53); HEMOGLOBIN 13.6 g/dL (13.5-17.5); LYMPHOCYTES # (AUTO) 0.2 K/uL (1.0-4.8); MEAN CORPUSCULAR HGB CONC 31.7 G/dL (31.0-37.0); MEAN CORPUSCULAR VOLUME 88 fL (80-100); MONOCYTES # (AUTO) 0.6 K/uL (0.1-1.0); MONOCYTES % (AUTO) 5.5 % (2.0-9.0); NEUTROPHILS # (AUTO) 10.3 K/uL (1.8-7.7); PLATELET COUNT (AUTO) 194 K/uL (150-450); RED BLOOD CELL COUNT(AUTO) 4.85 MIL/uL (4.50-5.90); RED CELL DISTRIBUTION WIDTH 18.8 % (11.5-14.5)
[2021-03-18] MEDS: GABAPENTIN 300 MG CAPSULE PO SCH ×3 (09:00→21:00)
[2021-03-18] MEDS: FOLIC ACID 1 MG TABLET PO SCH (09:00)
[2021-03-18] MEDS: METOPROLOL TARTRATE 25 MG TABLET PO SCH (09:00)
[2021-03-18] MEDS: DOCUSATE SODIUM 100 MG CAPSULE PO SCH ×2 (09:00→21:00)
[2021-03-18] MEDS: ALLOPURINOL 100 MG TABLET PO SCH (09:00)
[2021-03-18] MEDS: CHOLECALCIFEROL (VIT D3) 1,000 UNITS [25 MCG] TABLET PO SCH (09:00)
[2021-03-18 09:01] LABS: NEUTROPHILS % (AUTO) 92.4 % (40.0-70.0)
[2021-03-18] MEDS: PANTOPRAZOLE SODIUM 40 MG/VIAL IVP SCH (09:26)
[2021-03-18] MEDS: DEXAMETHASONE SOD PHOS 4 MG/ML VIAL IVP SCH (09:27)
[2021-03-18 09:30] LABS: ABG BASE EXCESS 0.2 mmol/L (-2.0-3.0); ABG CARBOXYHEMOGLOBIN 0.6 % (0.0-1.5); ABG HCO3 23.4 mmol/L (22.0-26.0); ABG METHEMOGLOBIN 0.3 % (0.0-1.5); ABG OXYGEN CONTENT 18.7 mL/dL (15.0-23.0); ABG OXYGEN SATURATION 94.9 % (95.0-98.0); ABG PCO2 63 mmHg (35-45); ABG PH 7.253 (7.35-7.450); ABG TOTAL HEMOGLOBIN 14.1 G/dL (12.0-18.0); PO2, ARTERIAL BG 77.8 mmHg (71.0-79.0); SOURCE, BLOOD GAS ARTERIAL; TEMPERATURE, FAHRENHEIT, BG 98.2 FAHREN (96.0-98.6)
[2021-03-18] MEDS ORDERED: METOPROLOL TARTRATE 5 MG/5 ML VIAL IVP ONE (09:30)
[2021-03-18 09:31] LABS: ABG A-A DIFF O2 499.5 mmHg (10-20.0); O2 DEVICE,BLOOD GAS BIPAP (ROOM AIR); SITE, BLOOD GAS LFT RADIAL
[2021-03-18 10:12] LABS: ALBUMIN 2.8 g/dL (3.4-5.0); BILIRUBIN,TOTAL 0.5 mg/dL (0.1-1.0); C-REACTIVE PROTEIN QUANT 5.98 mg/dL (0.00-0.30); CALCIUM, TOTAL 9.6 mg/dL (8.8-10.5); CREATININE 2.02 mg/dL (0.60-1.30); MAGNESIUM 3.2 mg/dL (1.80-2.40); PHOSPHORUS 4.6 mg/dL (2.5-4.9); POTASSIUM 5.7 mmol/L (3.5-5.1); TOTAL PROTEIN, SERUM 6.9 g/dL (6.4-8.2)
[2021-03-18 10:44] LABS: INR 1.4 (0.9-1.1); PROTHROMBIN TIME 14.2 SEC (9.4-11.6)
[2021-03-18] MEDS ORDERED: SODIUM ZIRCONIUM CYCLOSILICATE 5 GM POWDER PACKET PO ONE (10:45)
[2021-03-18] MEDS: LABETALOL HCL 5 MG/ML 20 ML VIAL IVP PRN ×2 (10:55→19:04)
[2021-03-18] MEDS: HEPARIN SODIUM 25000 UNITS/D5W 250 ML IV PRN (10:58)
[2021-03-18] MEDS ORDERED: FUROSEMIDE 40 MG/4 ML VIAL IVP STA (11:18)
[2021-03-18 11:42] LABS: D-DIMER 19.99 mg/L FEU (0.00-0.50)
[2021-03-18 12:00] VITALS: BP 171/82
[2021-03-18] MEDS: DEXMEDETOMIDINE HCL 400 MCG in SODIUM CHLORIDE 0.9% 96 ML IV PRN ×2 (13:53→23:51)
[2021-03-18] MEDS ORDERED: CloNIDine 0.2 MG/24 HOUR PATCH TD SCH (14:45)
[2021-03-18 16:00] VITALS: BP 148/67
[2021-03-18] MEDS ORDERED: LIDOCAINE 1% 10 ML VIAL SQ ONE (16:30)
[2021-03-18] MEDS ORDERED: 0.9% SODIUM CHLORIDE 10 ML SYRINGE IVP PRN (16:30)
[2021-03-18 20:00] VITALS: BP 180/99
[2021-03-18] MEDS: HydrALAZINE HCL 20 MG/ML VIAL IVP PRN (20:25)
[2021-03-18] MEDS: MONTELUKAST SODIUM 10 MG TABLET PO SCH (21:00)
[2021-03-18] MEDS: ATORVASTATIN CALCIUM 40 MG TABLET PO SCH (21:00)
[2021-03-18] MEDS: CefTRIAXone 1 GM/DEXTROSE 50 ML IV SCH (23:36)
[2021-03-19] VITALS: BP 160/81
[2021-03-19] MEDS: AZITHROMYCIN 500 MG/NS 250 ML IV SCH (00:03)
[2021-03-19] MEDS: IPRATROPIUM BROMIDE 0.5 MG/2.5 ML NEB SOLUTION NEB SCH ×5 (03:05→19:25)
[2021-03-19] MEDS: ALBUTEROL SULFATE 2.5 MG/0.5 ML NEB SOLUTION NEB SCH ×5 (03:05→19:25)
[2021-03-19 04:00] VITALS: BP 160/75
[2021-03-19] MEDS: DEXMEDETOMIDINE HCL 400 MCG in SODIUM CHLORIDE 0.9% 96 ML IV PRN ×5 (05:33→23:33)
[2021-03-19 06:16] LABS: BASOPHILS % (AUTO) 0.1 % (0.0-2.0); EOSINOPHILS % (AUTO) 0 % (1.0-6.0); HEMATOCRIT 41.8 % (41-53); HEMOGLOBIN 13.3 g/dL (13.5-17.5); LYMPHOCYTES # (AUTO) 0.2 K/uL (1.0-4.8); LYMPHOCYTES % (AUTO) 2.5 % (22.0-44.0); MEAN CORPUSCULAR HEMOGLOBIN 27.8 pg (26.0-34.0); MEAN CORPUSCULAR HGB CONC 31.8 G/dL (31.0-37.0); MEAN CORPUSCULAR VOLUME 87 fL (80-100); MONOCYTES # (AUTO) 0.3 K/uL (0.1-1.0); MONOCYTES % (AUTO) 3.3 % (2.0-9.0); NEUTROPHILS # (AUTO) 7.4 K/uL (1.8-7.7); PLATELET COUNT (AUTO) 168 K/uL (150-450); RED BLOOD CELL COUNT(AUTO) 4.79 MIL/uL (4.50-5.90); RED CELL DISTRIBUTION WIDTH 18.3 % (11.5-14.5)
[2021-03-19] MEDS: LEVOTHYROXINE SODIUM 125 MCG TABLET PO SCH (06:30)
[2021-03-19] MEDS: LEVOTHYROXINE SODIUM 50 MCG TABLET PO SCH (06:30)
[2021-03-19 06:39] LABS: ALBUMIN 2.5 g/dL (3.4-5.0); BILIRUBIN,TOTAL 0.6 mg/dL (0.1-1.0); C-REACTIVE PROTEIN QUANT 4.19 mg/dL (0.00-0.30); CALCIUM, TOTAL 9.5 mg/dL (8.8-10.5); CREATININE 1.88 mg/dL (0.60-1.30); PHOSPHORUS 3.6 mg/dL (2.5-4.9); POTASSIUM 5.6 mmol/L (3.5-5.1); TOTAL PROTEIN, SERUM 6.2 g/dL (6.4-8.2)
[2021-03-19] MEDS: HydrALAZINE HCL 20 MG/ML VIAL IVP PRN ×2 (06:40→20:41)
[2021-03-19 06:56] LABS: D-DIMER 11.26 mg/L FEU (0.00-0.50)
[2021-03-19 07:07] LABS: GLUCOSE,POINT OF CARE 206 MG/DL (70-110)
[2021-03-19 07:28] LABS: NEUTROPHILS % (AUTO) 94.1 % (40.0-70.0)
[2021-03-19] MEDS: MORPHINE SULFATE 2 MG/ML SYRINGE IVP PRN ×4 (07:35→23:33)
[2021-03-19 08:00] VITALS: BP 152/71
[2021-03-19] MEDS: PANTOPRAZOLE SODIUM 40 MG/VIAL IVP SCH (08:53)
[2021-03-19] MEDS: LABETALOL HCL 5 MG/ML 20 ML VIAL IVP PRN ×2 (08:54→21:57)
[2021-03-19] MEDS: FOLIC ACID 1 MG TABLET PO SCH (08:58)
[2021-03-19] MEDS: DOCUSATE SODIUM 100 MG CAPSULE PO SCH ×2 (08:58→21:00)
[2021-03-19] MEDS: METOPROLOL TARTRATE 25 MG TABLET PO SCH (08:58)
[2021-03-19] MEDS: GABAPENTIN 300 MG CAPSULE PO SCH ×3 (08:58→21:00)
[2021-03-19] MEDS: CALCITRIOL 0.25 MCG CAPSULE PO SCH (08:58)
[2021-03-19] MEDS: CHOLECALCIFEROL (VIT D3) 1,000 UNITS [25 MCG] TABLET PO SCH (08:58)
[2021-03-19] MEDS: ALLOPURINOL 100 MG TABLET PO SCH (08:58)
[2021-03-19] MEDS ORDERED: FUROSEMIDE 40 MG/4 ML VIAL IVP ONE (09:00)
[2021-03-19] MEDS: DEXAMETHASONE SOD PHOS 4 MG/ML VIAL IVP SCH (09:31)
[2021-03-19 12:00] VITALS: BP 157/54
[2021-03-19] MEDS: HEPARIN SODIUM 25000 UNITS/D5W 250 ML IV PRN (12:44)
[2021-03-19 16:00] VITALS: BP 141/61
[2021-03-19 20:00] VITALS: BP 162/72
[2021-03-19] MEDS: MONTELUKAST SODIUM 10 MG TABLET PO SCH (21:00)
[2021-03-19] MEDS: ATORVASTATIN CALCIUM 40 MG TABLET PO SCH (21:00)
[2021-03-20] VITALS: BP 151/64
[2021-03-20] MEDS: IPRATROPIUM BROMIDE 0.5 MG/2.5 ML NEB SOLUTION NEB SCH ×6 (01:25→19:30)
[2021-03-20] MEDS: ALBUTEROL SULFATE 2.5 MG/0.5 ML NEB SOLUTION NEB SCH ×6 (01:25→19:30)
[2021-03-20] MEDS: MORPHINE SULFATE 2 MG/ML SYRINGE IVP PRN ×2 (03:14→05:55)
[2021-03-20] MEDS: HydrALAZINE HCL 20 MG/ML VIAL IVP PRN (03:14)
[2021-03-20] MEDS: DEXMEDETOMIDINE HCL 400 MCG in SODIUM CHLORIDE 0.9% 96 ML IV PRN ×3 (03:56→13:35)
[2021-03-20] MEDS: LABETALOL HCL 5 MG/ML 20 ML VIAL IVP PRN (05:55)
[2021-03-20] MEDS: LEVOTHYROXINE SODIUM 50 MCG TABLET PO SCH (06:30)
[2021-03-20] MEDS: LEVOTHYROXINE SODIUM 125 MCG TABLET PO SCH (06:30)
[2021-03-20 06:55] LABS: CREATININE 1.72 mg/dL (0.60-1.30); POTASSIUM 5.2 mmol/L (3.5-5.1)
[2021-03-20 07:00] LABS: PHOSPHORUS 3.8 mg/dL (2.5-4.9)
[2021-03-20 08:00] VITALS: BP 143/65
[2021-03-20] MEDS: FOLIC ACID 1 MG TABLET PO SCH (09:00)
[2021-03-20] MEDS: GABAPENTIN 300 MG CAPSULE PO SCH ×2 (09:00→16:00)
[2021-03-20] MEDS: CHOLECALCIFEROL (VIT D3) 1,000 UNITS [25 MCG] TABLET PO SCH (09:00)
[2021-03-20] MEDS: METOPROLOL TARTRATE 25 MG TABLET PO SCH (09:00)
[2021-03-20] MEDS: ALLOPURINOL 100 MG TABLET PO SCH (09:00)
[2021-03-20] MEDS: DOCUSATE SODIUM 100 MG CAPSULE PO SCH (09:00)
[2021-03-20] MEDS: PANTOPRAZOLE SODIUM 40 MG/VIAL IVP SCH (09:19)
[2021-03-20] MEDS: DEXAMETHASONE SOD PHOS 4 MG/ML VIAL IVP SCH (09:20)
[2021-03-20 12:00] VITALS: BP 162/71
[2021-03-20 18:00] VITALS: BP 162/71
[2021-03-20] MEDS ORDERED: ATROPINE SULFATE 0.1 MG/ML 10 ML SYRINGE IVP ONE (19:53)
[2021-03-20] MEDS ORDERED: EPINEPHrine 1:10,000 [1 MG/10 ML] SYRINGE IVP ONE ×2 (19:53)
[2021-03-20] MEDS ORDERED: 0.9% SODIUM CHLORIDE 10 ML SYRINGE IVP ONE ×2 (19:53)
[2021-03-20] MEDS ORDERED: SODIUM BICARBONATE [ADULT] 8.4% 50 MEQ/50 ML SYRINGE IVP ONE (19:53)
== END 2021-03-20 19:54 | DRG 177 ==
LOC: EMS 09:22 → 5N 19:17 → ICU 03-15 16:50
PROVIDERS: ADMIT Hospitalist; ATTEND Hospitalist
PROC: 5A09357 Assistance with Respiratory Ventilation, Less than 24 Consecutive Hours, Continuous Positive Airway Pressure (ICD-10-PCS; 2021-03-12)
PROC: XW033E5 Introduction of Remdesivir Anti-infective into Peripheral Vein, Percutaneous Approach, New Technology Group 5 (ICD-10-PCS; principal; 2021-03-13)
PROC: 5A0935A Assistance with Respiratory Ventilation, Less than 24 Consecutive Hours, High Flow/Velocity Cannula (ICD-10-PCS; 2021-03-14)
PROC: XW033H5 Introduction of Tocilizumab into Peripheral Vein, Percutaneous Approach, New Technology Group 5 (ICD-10-PCS; 2021-03-15)
PROC: 5A09357 Assistance with Respiratory Ventilation, Less than 24 Consecutive Hours, Continuous Positive Airway Pressure (ICD-10-PCS; 2021-03-15)
PROC: 5A0935A Assistance with Respiratory Ventilation, Less than 24 Consecutive Hours, High Flow/Velocity Cannula (ICD-10-PCS; 2021-03-15)
PROC: 5A09357 Assistance with Respiratory Ventilation, Less than 24 Consecutive Hours, Continuous Positive Airway Pressure (ICD-10-PCS; 2021-03-16)
PROC: 5A0935A Assistance with Respiratory Ventilation, Less than 24 Consecutive Hours, High Flow/Velocity Cannula (ICD-10-PCS; 2021-03-16)
PROC: 5A09357 Assistance with Respiratory Ventilation, Less than 24 Consecutive Hours, Continuous Positive Airway Pressure (ICD-10-PCS; 2021-03-17)
PROC: 5A0935A Assistance with Respiratory Ventilation, Less than 24 Consecutive Hours, High Flow/Velocity Cannula (ICD-10-PCS; 2021-03-17)
PROC: 5A09357 Assistance with Respiratory Ventilation, Less than 24 Consecutive Hours, Continuous Positive Airway Pressure (ICD-10-PCS; 2021-03-18)
PROC: 5A09357 Assistance with Respiratory Ventilation, Less than 24 Consecutive Hours, Continuous Positive Airway Pressure (ICD-10-PCS; 2021-03-19)
PROC: 5A12012 Performance of Cardiac Output, Single, Manual (ICD-10-PCS; 2021-03-20)
PROC: 5A09357 Assistance with Respiratory Ventilation, Less than 24 Consecutive Hours, Continuous Positive Airway Pressure (ICD-10-PCS; 2021-03-20)
DX: U07.1 COVID-19 (principal); A41.9 Sepsis, unspecified organism; J12.82 Pneumonia due to coronavirus disease 2019; J96.01 Acute respiratory failure with hypoxia; N17.0 Acute kidney failure with tubular necrosis; J44.0 Chronic obstructive pulmonary disease with (acute) lower respiratory infection; E87.0 Hyperosmolality and hypernatremia; D72.810 Lymphocytopenia; E03.9 Hypothyroidism, unspecified; E11.9 Type 2 diabetes mellitus without complications; E78.00 Pure hypercholesterolemia, unspecified; R79.82 Elevated C-reactive protein (CRP); R79.89 Other specified abnormal findings of blood chemistry; I48.91 Unspecified atrial fibrillation; E66.9 Obesity, unspecified; E78.5 Hyperlipidemia, unspecified; E87.5 Hyperkalemia; I10 Essential (primary) hypertension; Z68.37 Body mass index [BMI] 37.0-37.9, adult; Z79.01 Long term (current) use of anticoagulants; Z79.899 Other long term (current) drug therapy; Z79.51 Long term (current) use of inhaled steroids
CPT/HCPCS: 36245; 36569; 36600; 71045; 76937; 80048; 80053; 81001; 81002; 82550; 82570; 82728; 82805; 82962; 83605; 83615; 83735; 83880; 84100; 84145; 84300; 84484; 84540; 85025; 85379; 85610; 85730; 86140; 87040; 87804; 93005; 93970; 94640; 94644; 94660; 99291; C9113; G0378; J0131; J0171; J0360; J0456; J0461; J0696; J1100; J1644; J1940; J2270; J2543; J3370; J3490; J3535; J7030; J7050; Q9967; 36415-L1; 36415-TC; J7611; J7613; U0003